=== PATIENT | female | born 1985 | race African-American/Black ===

== ENCOUNTER 2016-08-06 18:39 | Emergency (ER) | payer MEDICAID ==
[~2016-08-06] VITALS: Ht 167.6 cm; Wt 92.0 kg
[~2016-08-06 18:39] MED LIST: ADDE20 PO; IBUP-232 PO; IBUP800T23 PO; LISI-360 PO; METH750T2 PO; REME30TA PO
[2016-08-06 18:44] VITALS: BP 183/112; PULSE 77; RESP 16; TEMP 98.3; O2SAT 100
--- NOTE | 2016-08-06 19:10 | PD ---
HPI Chief Complaint: Abdominal Pain Time Seen by Provider: 18:50 Travel History International Travel<30 days: No Contact w/Intl Traveler<30days: No Traveled to known affect area: No History of Present Illness HPI Is a 31-year-old female presents emergency department for evaluation of frequent and irregular vaginal bleeding over the past few months accompanied with some suprapubic cramping. States the bleeding is been gradually worsening. Patient states that she didn't think much of it and just thought she had regular periods that she started having some cramping and passing of grape size clots last night. She does not endorse any dizziness and weakness at this time. She states she's had a tubal ligation and presents today because of pelvic pain caused her to go to her symptoms and found that she might have an ectopic . She denies any diarrhea constipation nausea or vomiting. PFSH Past Medical History Hx Anticoagulant Therapy: No Diabetes: No Diminished Hearing: No Hypertension: Yes ?: Unknown : 1 : 1 Past Surgical History Section: Yes (X3) Social History Alcohol Use: No Tobacco Use: No Substance Use: No Allergies-Medications (Allergen,Severity, Reaction): Coded Allergies: No Known Allergies (Verified , 08/06/16) Reported Meds & Prescriptions Reported Meds & Active Scripts Active No Active Prescriptions or Reported Medications Review of Systems Except as stated in HPI: all other systems reviewed are Neg Physical Exam Narrative GENERAL: Well-developed well-nourished no apparent distress SKIN: Focused skin assessment warm/dry. HEAD: Atraumatic. Normocephalic. EYES: Pupils equal and round. No scleral icterus. No injection or drainage. No conjunctival pallor. ENT: No nasal bleeding or discharge. Mucous membranes pink and moist. NECK: Trachea midline. No JVD. CARDIOVASCULAR: Regular rate and rhythm. No murmur appreciated. RESPIRATORY: No accessory muscle use. Clear to auscultation. Breath sounds equal bilaterally. GASTROINTESTINAL: Abdomen soft, non-tender, nondistended. Hepatic and splenic margins not palpable. MUSCULOSKELETAL: No obvious deformities. No clubbing. No cyanosis. No edema. NEUROLOGICAL: Awake and alert. No obvious cranial nerve deficits. Motor grossly within normal limits. Normal speech. PSYCHIATRIC: Appropriate mood and affect; insight and judgment normal. Data Data Last Documented VS Vital Signs Date Time Temp Pulse Resp B/P Pulse Ox O2 Delivery O2 Flow Rate FiO2 08/06/16 20:15 76 16 176/103 100 Room Air 08/06/16 18:44 98.3 Orders Urinalysis - C+S If Indicated (08/06/16 18:48) Ed Urine Pregnancytest Poc (08/06/16 18:48) Basic Metabolic Panel (Bmp) (08/06/16 19:04) Complete Blood Count With Diff (08/06/16 19:04) Iv Access Insert/Monitor (08/06/16 19:04) Ecg Monitoring (08/06/16 19:04) Oximetry (08/06/16 19:04) Ondansetron Inj (Zofran Inj) (08/06/16 19:15) Sodium Chloride 0.9% Flush (Ns Flush) (08/06/16 19:15) Ketorolac Inj (Toradol Inj) (08/06/16 19:15) Gc And Chlamydia Pcr (08/06/16 19:04) Labs Laboratory Tests Test 08/06/16 08/06/16 18:55 19:20 Urine Color YELLOW Urine Turbidity CLEAR Urine pH 6.5 Urine Specific [place] 1.021 Urine Protein NEG mg/dL Urine Glucose (UA) NEG mg/dL Urine Ketones NEG mg/dL Urine Occult Blood MOD Urine Nitrite NEG Urine Bilirubin NEG Urine Leukocyte Esterase NEG Urine RBC 0-3 /hpf Urine WBC 0-2 /hpf Urine Squamous Epithelial 0-5 /hpf Cells Microscopic Urinalysis Comment CULT NOT INDICATED White Blood Count 7.9 TH/MM3 Red Blood Count 5.74 MIL/MM3 Hemoglobin 14.6 GM/DL Hematocrit 45.2 % Mean Corpuscular Volume 78.8 FL Mean Corpuscular Hemoglobin 25.4 PG Mean Corpuscular Hemoglobin 32.3 % Concent Red Cell Distribution Width 13.3 % Platelet Count 183 TH/MM3 Mean Platelet Volume 9.7 FL Neutrophils (%) (Auto) 59.2 % Lymphocytes (%) (Auto) 27.5 % Monocytes (%) (Auto) 8.3 % Eosinophils (%) (Auto) 0.6 % Basophils (%) (Auto) 4.4 % Neutrophils # (Auto) 4.6 TH/MM3 Lymphocytes # (Auto) 2.2 TH/MM3 Monocytes # (Auto) 0.7 TH/MM3 Eosinophils # (Auto) 0.0 TH/MM3 Basophils # (Auto) 0.3 TH/MM3 CBC Comment DIFF FINAL Differential Comment Sodium Level 142 MEQ/L Potassium Level 4.3 MEQ/L Chloride Level 106 MEQ/L Carbon Dioxide Level 28.0 MEQ/L Anion Gap 8 MEQ/L Blood Urea Nitrogen 15 MG/DL Creatinine 0.73 MG/DL Estimat Glomerular Filtration 113 ML/MIN Rate Random Glucose 82 MG/DL Calcium Level 9.0 MG/DL MDM Medical Decision Making Medical Screen Exam Complete: Yes Emergency Medical Condition: Yes Differential Diagnosis Dysfunctional uterine bleeding, ectopic , anemia, hormonal imbalance. Narrative Course Patient was roomed in emergency department, hemoglobin and hematocrit are normal , previous test negative. Patient is related, I discussed with her that she needs to have a pelvic exam and Pap smear and recommend following up an [employer]. I offered to do a pelvic exam here today that the patient would rather follow- up with a typesetter apprentice. Discussed with her that if her bleeding should worsen if she has any hypovolemic symptoms including presyncope she should return to the emergency department. She was referred to typesetter apprentice in the area. She is very grateful and ambulated from the emergency department in no apparent distress. Diagnosis Primary Impression: Menometrorrhagia Additional Impression: DUB (dysfunctional uterine bleeding) Referrals: Rachna Valentine MD Scripts No Active Prescriptions or Reported Meds Disposition: 01 DISCHARGE HOME Condition: Stable Ryan Pickens MD Aug 06, 2016 19:10
[2016-08-06 19:14] VITALS: RESP 16; O2SAT 100
[2016-08-06 19:15] VITALS: BP 174/100; PULSE 78; RESP 16; O2SAT 100
[2016-08-06] MEDS ORDERED: SODIUM CHLORIDE 0.9% FLUSH 10 ML FLUSH IV FLUSH PRN (19:15)
[2016-08-06] MEDS ORDERED: KETOROLAC TROMETHAMINE 30 MG/ML (IVP) VIAL IVP ONE (19:15)
[2016-08-06] MEDS ORDERED: ONDANSETRON HCL 4 MG/2 ML VIAL IVP ONE (19:15)
[2016-08-06 19:41] LABS: GLUCOSE,URINE NEG (NEG); KETONE, URINE NEG (NEG); NITRITE,URINE NEG (NEG); PH, URINE 6.5 (5.0-8.5)
[2016-08-06 19:42] LABS: AUTOMATED NEUTROPHIL # 4.6 TH/MM3 (1.8-7.7); BASOPHIL # 0.3 TH/MM3 (0-0.2); BASOPHIL % 4.4 % (0.0-2.0); EOSINOPHIL % 0.6 % (0.0-4.0); HEMATOCRIT 45.2 % (35.0-46.0); HEMO FLAGS DIFF FINAL; LYMPH % 27.5 % (9.0-44.0); LYMPHOCYTE # 2.2 TH/MM3 (1.0-4.8); MEAN CELL VOLUME 78.8 FL (80.0-100.0); MEAN CORPUSCULAR HEMOGLOBIN 25.4 PG (27.0-34.0); MEAN CORPUSCULAR HGB CONC 32.3 % (32.0-36.0); MONO % 8.3 % (0.0-8.0); NEUT % 59.2 % (16.0-70.0); PLATELET COUNT 183 TH/MM3 (150-450); RED BLOOD COUNT 5.74 MIL/MM3 (4.00-5.30); RED CELL DISTRIBUTION WIDTH 13.3 % (11.6-17.2); WHITE BLOOD COUNT 7.9 TH/MM3 (4.0-11.0)
[2016-08-06 19:52] LABS: BLOOD, URINE MOD (NEG)
[2016-08-06 19:53] LABS: URINE COLOR YELLOW (YELLW/STRAW)
[2016-08-06 19:54] LABS: COMMENT (UR) CULT NOT INDICATED; CULTURE IF INDICATED CULT NOT INDICATED; RBC, URINE 0-3 /hpf (0-3); SQUAMOUS EPITHELIAL CELL URINE 0-5 /hpf (0-5); WBC, URINE 0-2 /hpf (0-5)
[2016-08-06 20:00] LABS: POTASSIUM 4.3 MEQ/L (3.5-5.1)
[2016-08-06 20:15] VITALS: BP 176/103; PULSE 76; RESP 16; O2SAT 100
[2016-08-06 20:55] VITALS: RESP 16
[2016-08-07 11:21] LABS: CHLAMYDIA PCR NOT DETECTED (NOT DETECT); NEISSERIA PCR NOT DETECTED (NOT DETECT)
== END 2016-08-06 20:47 | disposition home or self-care (01) ==
LOC: PHED 18:39
DX: N92.1 Excessive and frequent menstruation with irregular cycle (principal); N93.8 Other specified abnormal uterine and vaginal bleeding; R10.2 Pelvic and perineal pain; I10 Essential (primary) hypertension; Z98.51 Tubal ligation status
CPT/HCPCS: 80048; 81001; 84703; 85025; 87491; 87591; 96374; 96375; 99284; J1885; J2405

== ENCOUNTER 2016-12-07 17:10 | Emergency (ER) | payer MEDICAID ==
[~2016-12-07] VITALS: Ht 167.6 cm; Wt 92.0 kg
[2016-12-07 17:13] VITALS: BP 178/101; PULSE 92; RESP 16; TEMP 98.2; O2SAT 100
[2016-12-07] MEDS ORDERED: SULFAMETHOXAZOLE-TRIMETHOPRIM DS 800-160 MG TAB PO ONE (17:30)
[2016-12-07] MEDS ORDERED: LIDOCAINE HCL 1% 50 ML VIAL INFIL ONE (17:30)
--- NOTE | 2016-12-07 17:33 | PD ---
HPI Chief Complaint: Skin Problem Time Seen by Provider: 17:17 Travel History International Travel<30 days: No Contact w/Intl Traveler<30days: No Traveled to known affect area: No History of Present Illness HPI The patient is a 31-year-old female who presents emergency department for an abscess to left axilla. The patient notes a 3 to four-day history of an abscess to left axilla which is progressively enlarged. She denies any drainage from the affected area but does note a few small satellite lesions in the affected area. The patient does have a history of similar abscesses in the past but denies any history of hidradenitis suppurative. The patient's symptoms are moderate, she thought possibly exacerbated by her deodorant and/or shaving under the left armpit, and not alleviated with warm compresses. She denies any fever, chills, or sweats. She denies any history of diabetes. PFSH Past Medical History Hx Anticoagulant Therapy: No ADD: Yes Anxiety: Yes Depression: Yes (MAJOR DEPRESSION DISORDER) Cardiovascular Problems: Yes (HTN) Diabetes: No Diminished Hearing: No Hypertension: Yes ?: Not : 4 Para: 3 : 1 Tubal Ligation: Yes Past Surgical History Section: Yes (X3) Social History Alcohol Use: Yes (RARE) Tobacco Use: No Substance Use: No Allergies-Medications (Allergen,Severity, Reaction): Coded Allergies: No Known Allergies (Verified , 12/07/16) Reported Meds & Prescriptions Reported Meds & Active Scripts Active No Active Prescriptions or Reported Medications Review of Systems General / Constitutional: No: Fever Musculoskeletal: Positive: Pain Skin: Positive Other (as noted in history of present illness) Psychiatric: No: Other (no history of diabetes) Physical Exam Narrative GENERAL: Awake, alert, very pleasant 31-year-old female who appears her stated age and is in no acute respiratory distress. SKIN: Focused skin assessment warm/dry. HEAD: Atraumatic. Normocephalic. NECK: Trachea midline. No JVD. Axilla: The patient has a 4 cm x 2.5 cm fluctuant abscess in the left axilla which is tender to palpation. There is no visible drainage. There are a few small satellite lesions less than 1 cm and some palpable reactive lymphadenopathy. MUSCULOSKELETAL: No obvious deformities. No clubbing. No cyanosis. No edema. NEUROLOGICAL: Awake and alert. No obvious cranial nerve deficits. Motor grossly within normal limits. Normal speech. PSYCHIATRIC: Appropriate mood and affect; insight and judgment normal. Data Data Last Documented VS Vital Signs Date Time Temp Pulse Resp B/P (MAP) Pulse Ox O2 Delivery O2 Flow Rate FiO2 12/07/16 17:13 98.2 92 16 178/101 (126) 100 Orders Orders Wound Culture And Gram Stain (12/07/16 17:25) Lidocaine 1% Inj (50 Ml) (Xylocaine 1% I (12/07/16 17:30) Sulfamet-Trimeth Ds 800-160 Mg (Bactrim (12/07/16 17:30) MDM Medical Decision Making Medical Screen Exam Complete: Yes Emergency Medical Condition: Yes Medical Record Reviewed: Yes Differential Diagnosis differential diagnosis includes abscess, cellulitis, lymphadenopathy, hidradenitis supportive, folliculitis, carbuncle. Narrative Course The patient has an abscess in the left axilla which requires incision and drainage. I do discussion regarding the risk and benefits of incision and drainage. The patient is agreeable. The skin was cleaned with Betadine, anesthetized 1% lidocaine with a 27-gauge needle, open with a #11 incisional blade. Culture was obtained. The patient had a dry sterile dressing applied. The patient we placed on Bactrim, ibuprofen, [place], and will be prescribed Hibiclens to use after Bactrim as finished. Procedures Procedure Narrative After the risks and benefits were discussed the following procedure was performed: INCISION AND DRAINAGE OF ABSCESS: The area was prepped and was sterilely draped. A subcutaneous wheal of 1% % Xylocaine with a total number to mL was used to anesthetize the area. The area was properly anesthetized. A number 11 scalpel was used to make a 1.5-cm incision across the area of the abscess. Cultures were obtained. The abscess was drained an irrigated with normal saline. Dressing was applied. Diagnosis Primary Impression: Abscess Patient Instructions: General Instructions Additional Instructions: Warm soaks twice a day. Medications as directed. Follow-up with your primary physician. Return if symptoms worsen or progress. Med/Other Pt SpecificInfo: Prescription(s) given Scripts Ibuprofen (Ibuprofen) 600 Mg Tab 600 MG PO Q6H Y for Pain/Inflammation, #20 TAB 0 Refills Prov: Marcos Gonsalez MD 12/07/16 Hydrocodone-Acetaminophen ([place]) 5-325 mg Tab 1 TAB PO Q6H Y for PAIN, #10 TAB 0 Refills Prov: Marcos Gonsalez MD 12/07/16 Sulfamethoxazole-Trimethoprim (Bactrim DS) 800-160 Mg Tab 1 TAB PO BID for Infection, #14 TAB 0 Refills Prov: Marcos Gonsalez MD 12/07/16 Chlorhexidine Gluconate Topical (Hibiclens Topical) 4% Liq 1 APPLIC TOPICAL ONCE for Skin Cleanser, #118 ML 0 Refills Prov: Marcos Gonsalez MD 12/07/16 Disposition: 01 DISCHARGE HOME Condition: Stable Marcos Gonsalez MD Dec 07, 2016 17:33
[2016-12-07] MEDS ORDERED: IBUP-232 PO (17:47)
[2016-12-07] MEDS ORDERED: BACT800T5 PO (17:47)
[2016-12-07] MEDS ORDERED: HIBI4LIQ TOPICAL (17:47)
[2016-12-07] MEDS ORDERED: NORC5TAB PO (17:47)
== END 2016-12-07 18:07 | disposition home or self-care (01) ==
LOC: PHED 17:10
DX: L02.412 Cutaneous abscess of left axilla (principal); B95.61 Methicillin susceptible Staphylococcus aureus infection as the cause of diseases classified elsewhere
CPT/HCPCS: 10060; 86403; 87070; 87186; 87205

== ENCOUNTER 2016-12-31 11:15 | Emergency (ER) | payer MEDICAID, OTHER ==
[~2016-12-31] VITALS: Ht 167.6 cm; Wt 93.5 kg
[~2016-12-31 11:15] MED LIST changes: -ADDE20 PO; +BACT800T5 PO; +HIBI4LIQ TOPICAL; -IBUP800T23 PO; -LISI-360 PO; -METH750T2 PO; +NORC5TAB PO; -REME30TA PO
[2016-12-31 11:24] VITALS: BP 195/112; PULSE 77; RESP 15; TEMP 98.3; O2SAT 100
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
[2016-12-31] MEDS ORDERED: ROBA750T PO (12:58)
[2016-12-31] MEDS ORDERED: MOBI15TA PO (12:58)
== END 2016-12-31 13:11 | disposition home or self-care (01) ==
LOC: PHED 11:15
DX: M51.16 Intervertebral disc disorders with radiculopathy, lumbar region (principal); G89.29 Other chronic pain; V89.2XXA Person injured in unspecified motor-vehicle accident, traffic, initial encounter
CPT/HCPCS: 72131; 99284

== ENCOUNTER 2017-01-24 11:46 | Emergency (ER) | payer MEDICAID ==
[~2017-01-24] VITALS: Ht 167.6 cm; Wt 88.7 kg
[~2017-01-24 11:46] MED LIST changes: -BACT800T5 PO; -HIBI4LIQ TOPICAL; -IBUP-232 PO; +MOBI15TA PO; -NORC5TAB PO; +ROBA750T PO
[2017-01-24 11:55] VITALS: BP 176/101; PULSE 97; RESP 16; TEMP 99.3; O2SAT 100
[2017-01-24] MEDS ORDERED: AMOX875T PO (12:30)
--- NOTE | 2017-01-24 12:35 | PD ---
HPI Chief Complaint: ENT Complaint Time Seen by Provider: 12:15 Travel History International Travel<30 days: No Contact w/Intl Traveler<30days: No Traveled to known affect area: No History of Present Illness HPI 31-year-old Afro-[place] female is emergency Department with sudden onset severe sore throat and low-grade fever. Patient has been exposed to her children that are both sick with similar symptoms. She denies nausea vomiting or diarrhea. She has no sinus tenderness or cough. Pain is 9 out of 10. She is able to swallow but with difficulty. She has no known drug allergies. PFSH Past Medical History Hx Anticoagulant Therapy: No ADD: Yes Anxiety: Yes Depression: Yes (MAJOR DEPRESSION DISORDER) Cardiovascular Problems: Yes (htn states doesnt take medication) Diabetes: No Diminished Hearing: No Hypertension: Yes Musculoskeletal: Yes (s1 and s5 bulging disc , chronic back pain) ?: Not LMP: 12/22/16 : 4 Para: 3 : 1 Tubal Ligation: Yes Past Surgical History Section: Yes (X3) Social History Alcohol Use: Yes (RARE) Tobacco Use: No (occ audra for pain management ) Substance Use: Yes ([place]) Allergies-Medications (Allergen,Severity, Reaction): Coded Allergies: No Known Allergies (Verified Adverse Reaction, Unknown, 01/24/17) Reported Meds & Prescriptions Reported Meds & Active Scripts Active Amoxicillin 875 Mg Tab 875 Mg PO BID 10 Days Review of Systems Except as stated in HPI: all other systems reviewed are Neg General / Constitutional: Positive: Fever, Chills Eyes: No: Visual changes HENT: Positive: Sore Throat, Earache, No: Headaches, Vertigo, Lightheadedness, Rhinitis, Rhinorrhea, Congestion, Nosebleed, Neck Stiffness, Neck Pain, Masses, Gingival Bleeding, Dental Difficulties, Ear Discharge Cardiovascular: No: Chest Pain or Discomfort Respiratory: No: Cough, Shortness of Breath, Wheezing Gastrointestinal: No: Nausea, Vomiting, Diarrhea, Abdominal Pain Genitourinary: No: Dysuria Musculoskeletal: No: Pain Skin: No Rash Neurologic: No: Weakness Psychiatric: No: Depression Endocrine: No: Polydipsia Hematologic/Lymphatic: No: Easy Bruising Physical Exam Narrative GENERAL: Patient appears in mild distress. SKIN: Warm and dry. Normal color. Normal turgor. No rash HEAD: Atraumatic. Normocephalic. EYES: Pupils equal and round. No scleral icterus. No injection or drainage. ENT: No nasal bleeding or discharge. Mucous membranes pink and moist. TMs are somewhat dull bilaterally with no injection. There is increased serous fluid on the right. Posterior pharynx is beefy red and swollen without signs of abscess. Uvula is midline. No significant exudate is noted at this time. No postnasal drip. NECK: Trachea midline. Supple with mild lymphadenopathy. CARDIOVASCULAR: Regular rate and rhythm. RESPIRATORY: No accessory muscle use. Clear to auscultation. Breath sounds equal bilaterally. GASTROINTESTINAL: Abdomen soft, non-tender, nondistended. Hepatic and splenic margins not palpable. MUSCULOSKELETAL: Extremities without clubbing, cyanosis, or edema. No obvious deformities. NEUROLOGICAL: Awake and alert. No obvious cranial nerve deficits. Motor grossly within normal limits. Five out of 5 muscle strength in the arms and legs. Normal speech. PSYCHIATRIC: Appropriate mood and affect; insight and judgment normal. Data Data Last Documented VS Vital Signs Date Time Temp Pulse Resp B/P (MAP) Pulse Ox O2 Delivery O2 Flow Rate FiO2 01/24/17 11:55 99.3 97 16 176/101 (126) 100 MDM Medical Decision Making Medical Screen Exam Complete: Yes Emergency Medical Condition: Yes Differential Diagnosis Strep pharyngitis. Viral pharyngitis. Sore throat. Narrative Course Patient is felt to have acute strep pharyngitis. Patient is treated with amoxicillin 875 twice a day 10 days. Patient can take Tylenol, ibuprofen, ice chips, popsicles and follow-up as needed. Work note for today is given. Diagnosis Primary Impression: Acute streptococcal pharyngitis Referrals: Primary Care Physician Patient Instructions: General Instructions, Strep Throat (DC) Departure Forms: Work Release Enter return to work date: Jan 25, 2017 Additional Instructions: Patient is felt to have acute strep pharyngitis. Patient is treated with amoxicillin 875 twice a day 10 days. Patient can take Tylenol, ibuprofen, ice chips, popsicles and follow-up as needed. Work note for today is given. Scripts Amoxicillin (Amoxicillin) 875 Mg Tab 875 MG PO BID for Infection for 10 Days, #20 TAB 0 Refills Prov: Anil Vargas MD 01/24/17 Disposition: 01 DISCHARGE HOME Condition: Stable Dominic Panda Jan 24, 2017 12:35
== END 2017-01-24 12:48 | disposition home or self-care (01) ==
LOC: PHEFT 11:46
DX: J02.0 Streptococcal pharyngitis (principal)
CPT/HCPCS: 99283